=== PATIENT | female | born 1940 | race Caucasian/White ===

== ENCOUNTER → 2017-12-27 | Outpatient (CLI) | payer MEDICARE ==
[~2017-12-27] MED LIST: CALCIUM PLUS D3 PO; DOCU-272 PO; DOXY100C2 PO; ENAL5TAB PO; MELA5CAP PO; MULTIVITAMIN PO; PROP225C8 PO; SIMV40TA59 PO; TRIA1CAP6 PO; WARFARIN PO
== END | disposition home or self-care (01) ==
LOC: SHCH 09:13
PROVIDERS: ATTEND Internal Medicine Cardiovascular Disease
DX: I10 Essential (primary) hypertension (principal); I20.9 Angina pectoris, unspecified; Z95.0 Presence of cardiac pacemaker
CPT/HCPCS: 93306

== ENCOUNTER → 2022-09-28 | Outpatient (CLI) | payer MEDICARE ==
[~2022-09-28] MED LIST changes: -DOCU-272 PO; +DOCU-280 PO; -DOXY100C2 PO; +DOXY100C5 PO; -ENAL5TAB PO; +ENAL5TAB17 PO; -TRIA1CAP6 PO; +TRIA1CAP87 PO
[2022-09-28 12:31] LABS: BASOPHILS % (AUTO) 0.6 % (0.0-5.0); EOSINOPHILS % (AUTO) 4.9 % (0.0-8.0); HEMATOCRIT 39.8 % (36-48); LYMPHOCYTES % (AUTO) 23.6 % (21.0-51.0); MEAN CORPUSCULAR HEMOGLOBIN 30.9 pg (27.0-33.0); MEAN CORPUSCULAR HGB CONC 32.4 g/dL (32.0-36.0); MEAN CORPUSCULAR VOLUME 95.2 fL (79-99); MONOCYTES % (AUTO) 7.5 % (3.0-13.0); NEUTROPHILS % (AUTO) 63.1 % (40.0-77.0); PLATELET COUNT (AUTO) 341 K/uL (130-400); RED BLOOD CELL COUNT(AUTO) 4.18 MIL/uL (4.00-5.50); RED CELL DISTRIBUTION WIDTH 13.2 % (11.0-15.5); WHITE BLOOD COUNT (AUTO) 6.4 K/uL (4.8-10.8)
[2022-09-28 12:50] LABS: HEMOGLOBIN A1C 5.8 % (4.0-6.0)
[2022-09-28 13:40] LABS: ALBUMIN 3.6 g/dL (3.5-5.0); POTASSIUM 4.7 mmol/L (3.5-5.1); T4 (THYROXINE) 8.5 ug/dL (4.7-13.3); THYROID STIMULATING HORMONE 2.82 uIU/mL (0.36-3.74); TOTAL PROTEIN, SERUM 6.9 g/dL (6.0-8.3)
== END | disposition home or self-care (01) ==
LOC: LAB 08:38
PROVIDERS: ATTEND Internal Medicine Cardiovascular Disease
DX: I48.0 Paroxysmal atrial fibrillation (principal); R07.9 Chest pain, unspecified; Z79.899 Other long term (current) drug therapy
CPT/HCPCS: 36415; 80053; 80061; 83036; 84436; 84443; 84479; 85025

== ENCOUNTER 2022-11-24 10:36 | Emergency (ER) | payer MEDICARE ==
[~2022-11-24] VITALS: Ht 162.6 cm; Wt 77.1 kg
[2022-11-24] MEDS ORDERED: OSEL75 PO (14:02)
[2022-11-24] MEDS ORDERED: MOLN200C PO (14:02)
[2022-11-24 14:17] VITALS: BP 142/61
== END 2022-11-24 14:17 | disposition home or self-care (01) ==
LOC: EDH 10:36
DX: U07.1 COVID-19 (principal); J11.1 Influenza due to unidentified influenza virus with other respiratory manifestations; E78.00 Pure hypercholesterolemia, unspecified; I11.9 Hypertensive heart disease without heart failure; Z20.822 Contact with and (suspected) exposure to COVID-19; Z79.899 Other long term (current) drug therapy; Z88.2 Allergy status to sulfonamides; Z90.49 Acquired absence of other specified parts of digestive tract; Z95.810 Presence of automatic (implantable) cardiac defibrillator
CPT/HCPCS: 99283; 87635; 87804 ×2; C9803